=== PATIENT | male | born 1930 | race Caucasian/White ===

== ENCOUNTER 2017-08-22 14:40 | Inpatient (IN) | payer OTHER ==
[~2017-08-22] VITALS: Ht 170.2 cm; Wt 81.1 kg
[~2017-08-22 14:40] MED LIST: AMBIEN5 MG PO; ASPIR 8181 M1; ASPIR-TRIN325 M1 PO; ASPIRIN E.C.81 M2 PO; AZOR 5/40 MG1 TABLET PO; Ambien PO; Antivert PO; Ascorbic Acid,Ester- PO; Aspirin E.C. PO; BENICAR20 MG PO; COLACE100 MG PO; COZAAR100 MG PO; CUBICIN500 MG/10 IV; Cipro PO; Colace PO; Coumadin Protocol PO; Coumadin,Jantoven PO; Cozaar PO; DALMANE30 MG PO; DIOVAN HCT 31 TABLE1 PO; FOLVITE1 M1 PO; GLUCOPHAGE1000 MG PO; Glucophage PO; HUMALOG MI100 UNIT/6 SC; HUMALOG MI100 UNIT/7 SQ; HUMALOG MIX SC; HUMALOG100 UNIT/2 SC; Heparin Lock 100 uni IV; Hydrodiuril,Oretic,E PO; K-DUR10 MEQ PO; K-Dur PO; K-TAB10 MEQ PO; LANTUS 3 M100 UNITS1 SC; LASIX40 MG PO; LEVEMIR FL100 UNITS/ SC; LIPITOR40 MG PO; LIPITOR80 MG PO; LO-DOSE ASPIRIN81 M1 PO; LOPRESSOR100 M1 PO; LOSARTAN POTAS100 MG; Lasix PO; Levemir Flexpen SC; Lipitor PO; Lopressor PO; METOPROLOL SUC100 MG PO; METOPROLOL TAR100 MG PO; MICRONASE5 MG PO; Maalox, Mylanta PO; NOVOLOG MI100 UNIT/2 SQ; NOVOLOG PE100 UNITS/ SC; Norvasc PO; NovoLOG Pen 3 ml SC; PLAVIX75 MG; PLAVIX75 MG PO; PROTONIX40 MG PO; Percocet 5/325,Endoc PO; Plavix PO; Protonix PO; SALINE FLUSH 1010 ML IV; SENOKOT S,PE1 TABLET PO; Senokot S,Pericolace PO; THERAGRAN1 TABLET PO; TRESIBA FL100 UNIT/1 SQ; TYLENOL REGULA325 MG PO; Tylenol Regular Stre PO; Zosyn IV; [UNRECOGNIZED DRUG - OTHER]; [UNRECOGNIZED DRUG - OTHER] SC; [UNRECOGNIZED DRUG - OTHER] SC; [UNRECOGNIZED DRUG - OTHER] SC; oxyCODONE PO
[2017-08-22 15:15] LABS: HEMATOCRIT 37.7 % (38.0-50.0); MCH 31.2 PG (29.0-34.0); MCHC 32.6 G/DL (30.0-36.0); MCV 95.7 FL (86-99); MEAN PLAT.VOLUME 10.5 uM^3 (9.0-12.4); PLATELET COUNT 235 K/uL (156-360); RBC DIS.WIDTH-CV 13.2 % (11.8-14.6); RBC DIS.WIDTH-SD 47.4 % (39-53); RED BLOOD COUNT 3.94 M/uL (4.00-5.50); WHITE BLOOD COUNT 8.7 K/uL (4.1-10.2)
[2017-08-22 15:21] LABS: PROTHROMBIN TIME 11.8 SEC (10.2-12.9)
[2017-08-22 15:24] LABS: PTT 29.6 SEC (25-37)
[2017-08-22 15:25] LABS: CHLORIDE 106 mEq/L (99-109); POTASSIUM 3.8 mEq/L (3.7-5.4); SODIUM 141 mEq/L (136-147)
[2017-08-22 15:27] LABS: GLUCOSE 278 mg/dL (70-99)
[2017-08-22 15:29] LABS: ANION GAP 7 MEQ/L (2-14); TOTAL BILIRUBIN 0.6 mg/dL (0.0-1.0)
[2017-08-22 15:31] LABS: ALKALINE PHOSPHATASE 110 IU/L (3-129); GFR ESTIMATE (CALCULATED) > 59 mL/min/
[2017-08-22 15:32] LABS: UREA NITROGEN (BUN) 23 mg/dL (9-23)
[2017-08-22 16:57] LABS: ADD MIUA? YES; BILIRUBIN NEGATIVE; BLOOD NEGATIVE; COLOR YELLOW ((YELLOW)); GLUCOSE (STRIP) >=500; KETONES NEGATIVE; LEUKOCYTES NEGATIVE; NITRITE NEGATIVE; PROTEIN (STRIP) 100; SPECIFIC GRAVITY 1.011 (1.000-1.030)
[2017-08-22 17:01] LABS: BACTERIA NONE SEEN /HPF; EPITHELIAL CELLS RARE /HPF; MUCUS NONE SEEN /LPF; UCUL ADDED? NO; WHITE BLOOD CELLS 0-5 /HPF (0-5)
[2017-08-22] MEDS ORDERED: FLORASTOR250 MG PO (18:54)
[2017-08-22] MEDS ORDERED: KAYEXALATE15 GM/60 M PO (18:56)
[2017-08-22] MEDS ORDERED: K-DUR10 MEQ PO (18:56)
[2017-08-22] MEDS ORDERED: TYLENOL REGULA325 MG PO (18:59)
[2017-08-22] MEDS ORDERED: ULTRAM50 MG PO (19:00)
[2017-08-22] MEDS ORDERED: HUMALOG100 UNIT/1 SC (19:01)
[2017-08-22 21:19] LABS: POINT-OF-CARE METER ID UU13113702
[2017-08-22 22:22] VITALS: BP 180/85
[2017-08-22 23:19] VITALS: BP 173/72
[2017-08-23 06:15] LABS: TROP-I INTERPRETATION NEGATIVE; TROPONIN-I 0.08 ng/mL (0.0-0.30)
[2017-08-23 07:28] VITALS: BP 113/53
[2017-08-23 08:58] LABS: POINT-OF-CARE METER ID UU14188577
[2017-08-23 11:20] VITALS: BP 136/63
[2017-08-23 11:37] LABS: POINT-OF-CARE METER ID UU14208753
[2017-08-23 15:31] VITALS: BP 140/64
[2017-08-23 16:08] LABS: POINT-OF-CARE METER ID UU14149397
[2017-08-23 19:19] VITALS: BP 139/64
[2017-08-23 21:25] LABS: POINT-OF-CARE METER ID UU14117124
[2017-08-23 23:28] VITALS: BP 140/64
[2017-08-24 03:28] VITALS: BP 114/55
[2017-08-24 06:28] LABS: POINT-OF-CARE METER ID UU14117124
[2017-08-24 07:45] VITALS: BP 133/69
[2017-08-24 11:42] VITALS: BP 123/55
[2017-08-24 12:01] LABS: POINT-OF-CARE METER ID UU14117124
[2017-08-24 15:58] VITALS: BP 155/63
[2017-08-24 16:39] LABS: POINT-OF-CARE METER ID UU14149397
[2017-08-24 20:03] VITALS: BP 144/66
[2017-08-24 22:33] LABS: POINT-OF-CARE METER ID UU14117124
[2017-08-24 23:33] VITALS: BP 122/56
[2017-08-25] VITALS (7 sets, daily range): BP systolic 121–180; BP diastolic 57–74
[2017-08-25 07:07] LABS: POINT-OF-CARE METER ID UU14208753
[2017-08-25 07:37] LABS: POINT-OF-CARE METER ID UU14208753
[2017-08-25 11:24] LABS: POINT-OF-CARE METER ID UU14149397
[2017-08-25 16:06] LABS: POINT-OF-CARE METER ID UU14208753
[2017-08-25 21:32] LABS: POINT-OF-CARE METER ID UU14208753
[2017-08-26 03:37] VITALS: BP 128/58
[2017-08-26 06:36] LABS: POINT-OF-CARE METER ID UU14208753
[2017-08-26 07:11] LABS: EOSINOPHIL COUNT 0.2 K/uL (0-0.3); IMMATURE GRANULOCYTE (%) 0.3 % (0.0-0.7); INSTRUMENT ABS NEUTROPHIL CT 5.1 K/uL; LYMPHOCYTE COUNT 1.8 K/uL (1.0-2.8); MCH 30.8 PG (29.0-34.0); MCV 93.4 FL (86-99); MEAN PLAT.VOLUME 11.2 uM^3 (9.0-12.4); MONOCYTE (%) 6.6 % (3-12); MONOCYTE COUNT 0.5 K/uL (0-0.8); NEUTROPHIL (%) 65.8 % (45-76); NEUTROPHIL COUNT 5.1 K/uL (1.8-6.4); PLATELET COUNT 197 K/uL (156-360); RBC DIS.WIDTH-CV 13.4 % (11.8-14.6); RBC DIS.WIDTH-SD 45.8 % (39-53); RED BLOOD COUNT 3.96 M/uL (4.00-5.50); WHITE BLOOD COUNT 7.7 K/uL (4.1-10.2)
[2017-08-26 07:45] LABS: ANION GAP 6 MEQ/L (2-14); CHLORIDE 107 MEQ/L (99-109); GFR ESTIMATE (CALCULATED) > 59 mL/min/; GLUCOSE 125 mg/dL (70-99); POTASSIUM 3.5 MEQ/L (3.7-5.4); SAMPLE HEMOLYSIS CHECK 0; SAMPLE ICTERIC CHECK 0; SAMPLE LIPEMIA CHECK 0; SODIUM 142 MEQ/L (136-147); UREA NITROGEN (BUN) 20 mg/dL (9-23)
[2017-08-26 08:04] VITALS: BP 150/67
[2017-08-26 11:28] VITALS: BP 138/79
[2017-08-26 12:11] LABS: POINT-OF-CARE METER ID UU14208753
[2017-08-26 14:50] LABS: POINT-OF-CARE METER ID UU13113675
[2017-08-26 16:51] VITALS: BP 169/73
[2017-08-26 17:23] LABS: POINT-OF-CARE METER ID UU14149397
[2017-08-26 20:07] VITALS: BP 167/71
[2017-08-26 23:12] VITALS: BP 125/60
[2017-08-27 03:57] VITALS: BP 144/63
[2017-08-27 07:58] VITALS: BP 116/56
[2017-08-27 11:32] VITALS: BP 134/59
[2017-08-27 11:36] LABS: POINT-OF-CARE METER ID UU14208753
[2017-08-27 14:24] LABS: HEMATOCRIT 35.3 % (38.0-50.0); MCH 31.4 PG (29.0-34.0); MCHC 32.9 G/DL (30.0-36.0); MCV 95.4 FL (86-99); MEAN PLAT.VOLUME 11.1 uM^3 (9.0-12.4); PLATELET COUNT 186 K/uL (156-360); RBC DIS.WIDTH-CV 13.8 % (11.8-14.6); RBC DIS.WIDTH-SD 47.9 % (39-53); WHITE BLOOD COUNT 8.5 K/uL (4.1-10.2)
[2017-08-27 16:16] VITALS: BP 122/54
[2017-08-27 16:22] LABS: POINT-OF-CARE METER ID UU14208753
[2017-08-27 19:32] VITALS: BP 134/73
[2017-08-27 19:34] VITALS: BP 147/67
[2017-08-27 21:56] LABS: POINT-OF-CARE METER ID UU14208753
[2017-08-28] VITALS (7 sets, daily range): BP systolic 123–173; BP diastolic 60–72
[2017-08-28 06:08] LABS: HEMATOCRIT 37.3 % (38.0-50.0); MCH 31.8 PG (29.0-34.0); MCHC 33.2 G/DL (30.0-36.0); MCV 95.6 FL (86-99); MEAN PLAT.VOLUME 11.2 uM^3 (9.0-12.4); PLATELET COUNT 161 K/uL (156-360); RBC DIS.WIDTH-CV 13.9 % (11.8-14.6); RBC DIS.WIDTH-SD 49.1 % (39-53); WHITE BLOOD COUNT 7.7 K/uL (4.1-10.2)
[2017-08-28 06:12] LABS: EOSINOPHIL (%) 5.4 % (0-5); EOSINOPHIL COUNT 0.4 K/uL (0-0.3); IMMATURE GRANULOCYTE (%) 0.4 % (0.0-0.7); LYMPHOCYTE COUNT 1.4 K/uL (1.0-2.8); MONOCYTE (%) 9.4 % (3-12); MONOCYTE COUNT 0.7 K/uL (0-0.8)
[2017-08-28 06:30] LABS: ANION GAP 8 MEQ/L (2-14); CHLORIDE 105 MEQ/L (99-109); GFR ESTIMATE (CALCULATED) > 59 mL/min/; GLUCOSE 159 mg/dL (70-99); SAMPLE HEMOLYSIS CHECK 0; SAMPLE ICTERIC CHECK 0; SAMPLE LIPEMIA CHECK 0; SODIUM 141 MEQ/L (136-147); UREA NITROGEN (BUN) 17 mg/dL (9-23)
[2017-08-28 06:49] LABS: POINT-OF-CARE METER ID UU14149397
[2017-08-28 12:19] LABS: POINT-OF-CARE METER ID UU14208753
[2017-08-28 17:04] LABS: POINT-OF-CARE METER ID UU14208753
[2017-08-28 21:21] LABS: POINT-OF-CARE METER ID UU14117124
[2017-08-29 05:02] VITALS: BP 123/55
[2017-08-29 06:18] LABS: POINT-OF-CARE METER ID UU14188577
[2017-08-29 08:01] VITALS: BP 182/75
[2017-08-29] MEDS ORDERED: ELIQUIS2.5 MG PO (09:16)
[2017-08-29] MEDS ORDERED: PERCOCET 5/31 TABLET PO (09:16)
[2017-08-29] MEDS ORDERED: LASIX20 MG PO (09:18)
[2017-08-29 11:45] LABS: POINT-OF-CARE METER ID UU14208753
== END 2017-08-29 12:27 | DRG 482 ==
LOC: EME 14:40 → EDOF 17:45 → 3EAST 17:45 → ENRESERV 18:08 → 3EAST 22:16
PROVIDERS: Emergency Medicine; Internal Medicine; Orthopaedic Surgery
PROC: 0QS634Z Reposition Right Upper Femur with Internal Fixation Device, Percutaneous Approach (ICD-10-PCS; principal; 2017-08-26)
DX: S72.011A Unspecified intracapsular fracture of right femur, initial encounter for closed fracture (principal); W19.XXXA Unspecified fall, initial encounter; L89.322 Pressure ulcer of left buttock, stage 2; L89.622 Pressure ulcer of left heel, stage 2; I11.0 Hypertensive heart disease with heart failure; I50.9 Heart failure, unspecified; I25.10 Atherosclerotic heart disease of native coronary artery without angina pectoris; Z95.1 Presence of aortocoronary bypass graft; Z89.511 Acquired absence of right leg below knee; Z86.73 Personal history of transient ischemic attack (TIA), and cerebral infarction without residual deficits; Z85.810 Personal history of malignant neoplasm of tongue; Z79.4 Long term (current) use of insulin; E11.51 Type 2 diabetes mellitus with diabetic peripheral angiopathy without gangrene; E78.5 Hyperlipidemia, unspecified; F17.200 Nicotine dependence, unspecified, uncomplicated; I45.10 Unspecified right bundle-branch block; I25.2 Old myocardial infarction; I65.23 Occlusion and stenosis of bilateral carotid arteries; I67.9 Cerebrovascular disease, unspecified; F03.90 Unspecified dementia, unspecified severity, without behavioral disturbance, psychotic disturbance, mood disturbance, and anxiety
CPT/HCPCS: 71010; 73502; 76000; 80048; 80053; 81003; 82948; 84484; 85025; 85027; 85610; 85730; 86850; 86900; 86901; 93005; 93306; 93880; 97530 GP; 99281; 99285; C1713; J0131; J0360; J0690; J1815; J2405; J2710; J3010